=== PATIENT | male | born 1955 | race Caucasian/White ===

== ENCOUNTER → 2021-12-13 | Outpatient (CLI) | payer OTHER ==
[~2021-12-13] MED LIST: ASCO500 PO; Ambien10 MG PO; Aspirin EC81 MG PO; CYAN1000 PO; DAILY MULTIPLE1 EACH PO; SIMV40 PO
== END | disposition home or self-care (01) ==
LOC: LAB SHORT 12:13 → PLD 12:13
DX: D18.01 Hemangioma of skin and subcutaneous tissue (principal)
CPT/HCPCS: 88305